=== PATIENT | female | born 1965 | race Caucasian/White ===

== ENCOUNTER → 2017-01-20 | Outpatient (CLI) | payer MEDICARE, OTHER ==
[~2017-01-20] MED LIST: ACETAMINOPHEN PO; AMLODIPINE BESYL5 MG PO; CLARITIN10 M2 PO; FLONASE16 GM; LOVASTATIN20 M1 PO; METFORMIN HCL500 M1 PO; MOBIC15 MG PO; NEURONTIN300 MG PO; OXYBUTYNIN10 MG/BOTT PO; PRINIVIL40 MG PO
--- NOTE | ~2017-01-20 | US77 ---
[facility] A Service of [facility] & [facility] RADIOLOGY TEXT RESULTS PATIENT: AMIE HUITRON LOCATION: [facility] : 63 UNIT #: [id number] AGE: [address]: Panchito Carvajal MD SEX: F ORDER DR: [id number] [facility] [address] [place], [place] [address] [id number] O MR#: [id number] Acc #: [id number] NAME: AMIE HUITRON : 1965 SEX: F STUDY DATE/TIME: 01/20/2017 8:31 UNIT: [facility] ROOM: STUDY DESCRIPTION: US Kidney Bilateral Complete Attending Physician: Panchito Carvajal M.D. Referring Physician: Panchito Carvajal M.D. Ordering Physician: Panchito Carvajal M.D. Primary Care Physician: Panchito Carvajal M.D. MEDICAL IMAGING REPORT This report is preliminary unless electronic signature is present EXAM Renal ultrasound 01/20/2017 HISTORY Right-side abdominal pain for 7 months. Chronic kidney, disease stage 3 diabetes, and hypertension. FINDINGS The right kidney measures 12.1 cm, while the left kidney measures 11.5 cm in longitudinal dimensions. There is no evidence of hydronephrosis or nephrolithiasis. No cystic or solid mass lesions were seen on either kidney. There is normal renal cortical echogenicity. Images of the bladder are normal. IMPRESSION 1. Negative renal ultrasound. 2. Images of the bladder are normal. Dictated by... Arnaldo Garces M.D. THIS IS AN ELECTRONICALLY VERIFIED REPORT Arnaldo Garces M.D. at 01/21/2017 7:33 AM KRT/pcl TD: 01/20/2017 15:46 JOB #: [id number] MEDICAL IMAGING REPORT Page 1 of 1 COPY
== END | disposition home or self-care (01) ==
LOC: CWCC 07:30
DX: N18.3 Chronic kidney disease, stage 3 (moderate) (principal)
CPT/HCPCS: 76705; 76770